=== PATIENT | female | born 1955 | race Caucasian/White ===

== ENCOUNTER 2017-07-27 07:27 | Inpatient (IN) | payer MEDICARE ==
[~2017-07-27] VITALS: Ht 154.9 cm; Wt 92.1 kg
[~2017-07-27 07:27] MED LIST: CLONAZEPAM0.5 MG PO; DESYREL300 MG PO; IBUPROFEN200 MG PO; MYRBETRIQ50 MG PO; PRILOSEC10 M1; PROAIR HFA INH8.5 GM PO; SEROQUEL25 MG PO; SERTRALINE HCL100 MG PO; SPIRIVA18 MCG INH; Z.0.LEVOTHYROXINE50 PO; Z.0.LOSARTAN POTASS2 PO; Z.0.NEURONTIN300 MG PO; Z.0.OMEPRAZOLE20 M1 PO; Z.0.OXYBUTYNIN CHLOR PO; Z.0.ZOCOR80 MG PO; Z.1.FLUOXETINE HCL20 PO; [UNRECOGNIZED DRUG - OTHER] PO
[2017-07-27 08:00] LABS: BASOPHILS # (AUTO) 0.1 (0.0-0.1); EOSINOPHILS # (AUTO) 0.1 (0.0-0.4); EOSINOPHILS % 1.4 % (0.0-6.0); HEMATOCRIT 35.7 % (34.2-44.1); HEMOGLOBIN 11.9 g/dL (12.0-16.0); LYMPHOCYTES % 38.4 % (18.0-39.1); MEAN CORPUSCULAR HEMOGLOBIN 29.8 pg (28-32); MEAN CORPUSCULAR HGB CONC 33.3 g/dL (31-35); MEAN CORPUSCULAR VOLUME 89.5 fL (81-99); MONOCYTES # (AUTO) 0.3 (0.2-0.8); MONOCYTES % 5.3 % (4.4-11.3); NEUTROPHILS # (AUTO) 2.7 (2.1-6.9); NEUTROPHILS % 53.7 % (38.7-80.0); PLATELET COUNT 242 x10e3/uL (140-360); RED BLOOD COUNT 3.99 x10e6/uL (3.6-5.1)
[2017-07-27 08:09] LABS: INR 1.02; PROTHROMBIN TIME 12.6 seconds (11.9-14.5)
[2017-07-27 08:11] LABS: PARTIAL THROMBOPLASTIN TIME 29.1 seconds (23.8-35.5)
[2017-07-27 08:18] LABS: ALANINE AMINOTRANSFERASE 11 IU/L (0-55); ALBUMIN 3.8 g/dL (3.5-5.0); ALBUMIN/GLOBULIN RATIO 1.1 (0.8-2.0); ALKALINE PHOSPHATASE 79 IU/L (40-150); ANION GAP 11.5 mmol/L (8-16); BLOOD UREA NITROGEN 10 mg/dL (7-26); BUN/CREATININE RATIO 12 (6-25); CALCIUM 9.6 mg/dL (8.4-10.2); CARBON DIOXIDE 29 mmol/L (22-29); CHLORIDE 108 mmol/L (98-107); CREATININE, SERUM 0.82 mg/dL (0.57-1.11); EST GLOMERULAR FILTRATION RATE > 60 ML/MIN (60-); GLUCOSE 104 mg/dL (74-118); POTASSIUM 3.5 mmol/L (3.5-5.1); SODIUM 145 mmol/L (136-145)
[2017-07-27 08:37] LABS: THYROID STIMULATING HORMONE 5.205 uIU/mL (0.350-4.940)
--- NOTE | 2017-07-27 09:11 | Diagnostic Imaging Report ---
Examination: CT head without contrast Clinical Indication: Evaluate for stroke. Technique: Transaxial noncontrast images from the skull base through the vertex were obtained. Sagittal and coronal reformatted images were done. Comparison: Head CT performed November 06, 2016.. Findings: Motion artifact. Scalp: No abnormalities. Bones: Intact. No fractures. No blastic or lytic lesions. Brain sulci: Normal for patient's age. Ventricles: Normal in size and configuration. No hydrocephalus. . Extra-axial space: No abnormalities. Parenchyma: There are mild confluent areas of low-attenuation within subcortical and periventricular white matter, nonspecific, but could represent microvascular ischemic disease. Again demonstrated are chronic with coronary infarcts in the right caudate head and genu of the right internal capsule/ inferior right globus pallidus. No large masses, large hemorrhage, or large acute or chronic cortical based vascular insults. Suprasellar region: No abnormalities. Craniocervical junction: The foramen magnum is patent. No Chiari one malformation. Incidental findings: Chronic left sphenoid sinusitis. Atherosclerotic calcification of the cavernous and supraclinoid internal carotid and V4 segments of the bilateral vertebral arteries. Impression: 1. Despite limitation, no new large acute intraparenchymal or extra-axial hemorrhage or large acute arterial infarct. No change from prior head CT performed November 06, 2016. 2. Unchanged moderate chronic microvascular ischemic change. 3. Unchanged chronic lacunar infarcts, as above. Signed by: Dr. Vidya Xavier M.D. on 07/27/2017 9:20 AM
[2017-07-27 10:34] LABS: BILIRUBIN,URINE NEGATIVE (NEGATIVE); KETONES,URINE NEGATIVE (NEGATIVE); LEUKOCYTE ESTERASE ,URINE NEGATIVE (NEGATIVE); NITRITE,URINE NEGATIVE (NEGATIVE); PROTEIN,URINE DIPSTICK NEGATIVE (NEGATIVE); URINE UROBILINOGEN 0.2 mg/dL (0.2 - 1)
[2017-07-27 10:39] LABS: AMPHETAMINES SCREEN,URINE NEGATIVE (NEGATIVE); BENZODIAZEPINES SCREEN,URINE NEGATIVE (NEGATIVE); PHENCYCLIDINE SCREEN,URINE NEGATIVE (NEGATIVE)
[2017-07-27 10:46] LABS: CHOL/HDL RATIO 5.8 (3.0-3.6); MAGNESIUM 1.9 MG/DL (1.3-2.1); PHOSPHORUS 4.1 MG/DL (2.3-4.7)
[2017-07-27 10:52] LABS: CLARITY,URINE CLEAR (CLEAR); COLOR,URINE YELLOW (YELLOW)
[2017-07-27 10:53] LABS: EPITHELIAL CELLS,URINE RARE /LPF
[2017-07-27] MEDS ORDERED: SODIUM CHLORIDE FLUSH 10 ML SYR INJ PRN (12:15)
[2017-07-27] MEDS ORDERED: ONDANSETRON HCL INJ 2 MG/ML VIAL IV PRN (12:15)
--- OUTSIDE RECORDS SUMMARY | 2017-07-27 12:30 | XMS REPORT ---
Author Author [facility] Address Unknown Phone Unavailable Care Team Providers Care Pst Specialist Name Role Phone GABRIELA SAUCEDO Unavailable Unavailable Problems This patient has no known problems. Allergies, Adverse Reactions, Alerts This patient has no known allergies or adverse reactions. Medications This patient has no known medications. Results Test Description Test Time Test Comments Text Results Atomic Results Result Comments CT BRAIN WO [place] [address] Patient Name: AGATHA GODFREY MR #: [id number] : 1958 Age/Sex: 59/F Req #: [id number] Adm Physician: Ordered by: GABRIELA SAUCEDO MD Report #: [id number] Location: ER Room/Bed: Procedure: [id number] CT/CT BRAIN WO Exam Date: 07/27/17 Exam Time: 0803 REPORT STATUS: Signed Examination: CT head without contrast Clinical Indication: Evaluate for stroke. Technique: Transaxial noncontrast images from the skull base through the vertex were obtained. Sagittal and coronal reformatted images were done. Comparison: Head CT performed November 06, 2016.. Findings: Motion artifact. Scalp: No abnormalities. Bones: Intact. No fractures. No blastic or lytic lesions. Brain sulci: Normal for patient's age. Ventricles: Normal in size and configuration. No hydrocephalus. . Extra-axial space: No abnormalities. Parenchyma: There are mild confluent areas of low-attenuation within subcortical and periventricular white matter, nonspecific, but could represent microvascular ischemic disease. Again demonstrated are chronic with coronary infarcts in the right caudate head and genu of the right internal capsule/ inferior right globus pallidus. No large masses, large hemorrhage, or large acute or chronic cortical based vascular insults. Suprasellar region: No abnormalities. Craniocervical junction: The foramen magnum is patent. No Chiari one malformation. Incidental findings: Chronic left sphenoid sinusitis. Atherosclerotic calcification of the cavernous and supraclinoid internal carotid and V4 segments of the bilateral vertebral arteries. Impression: 1. Despite limitation, no new large acute intraparenchymal or extra-axial hemorrhage or large acute arterial infarct. No change from prior head CT performed November 06, 2016. 2. Unchanged moderate chronic microvascular ischemic change. 3. Unchanged chronic lacunar infarcts, as above. Signed by: Dr. Vidya Xavier M.D. on 07/27/2017 9:20 AM Dictated By: VIDYA SO MD 9 Transcribed By: CHANDNI on 07/27/17919 COPY TO: GABRIELA SAUCEDO MD
[2017-07-27 12:50] LABS: ABG HCO3 30 mmol/L (23-28); ABG PCO2 52 mmHg (41-51); ABG PH 7.36 (7.31-7.41); ABG PO2 93 mmHg (80-105)
--- NOTE | 2017-07-27 14:27 | Diagnostic Imaging Report ---
EXAMINATION: MRI of the brain without contrast. HISTORY: Altered mental status, evaluate for acute stroke COMPARISON: Head CT on 11/06/2016 brain MRI in 10/16/2011 TECHNIQUE: Sagittal T2; axial DWI, T2, FLAIR, T1-IR, T2 gradient echo; coronal FLAIR. IMAGE QUALITY: Motion artifact limits evaluation of most of the sequences.. FINDINGS: Parenchyma: 1. Mildly confluent periventricular, york radiata and centrum semiovale white matter T2 hyperintense foci, most likely nonspecific chronic microvascular ischemic changes. 2. Again seen small chronic lacunar infarcts in the right head and body of the caudate nucleus. 3. No mass, hemorrhage, acute or chronic infarcts. Skull: Unremarkable. Vessels: Expected flow voids present in the major arteries and dural sinuses. Extra-axial spaces: No abnormal signal intensity or mass effect. Brain volume: Mild generalized brain windows, both particular prominence of the perisylvian regions) . Ventricles: No hydrocephalus or displacement. Foramen magnum: Unremarkable. Sella: Unremarkable. Paranasal / mastoid sinuses: Mild mucosal inflammatory thickening and partial opacification of the left greater than right sphenoid sinuses, otherwise clear IMPRESSION: Suboptimal study due to motion. 1. No acute infarcts. 2. Unchanged moderate chronic microvascular ischemic changes. 3. Also unchanged small chronic lacunar infarct in the right basal ganglia. 4. Mild generalized brain volume loss. Signed by: Dr. Angelica Murguia M.D. on 07/27/2017 2:24 PM
[2017-07-27] MEDS ORDERED: LEVOTHYROXINE SODIUM 50 MCG TAB PO ONE (16:15)
[2017-07-27] MEDS ORDERED: LABETALOL HCL 5 MG/ML 20ML VIAL IV PRN (17:15)
[2017-07-27] MEDS: QUETIAPINE FUMARATE 25 MG TAB PO SCH (17:36)
[2017-07-27 17:37] VITALS: BP 174/77
[2017-07-27 20:00] VITALS: BP 169/101
[2017-07-27] MEDS ORDERED: ATORVASTATIN 20 MG TAB PO SCH (21:00)
[2017-07-27] MEDS: ATORVASTATIN 40 MG TAB PO SCH (21:46)
[2017-07-28] VITALS (8 sets, daily range): BP systolic 143–178; BP diastolic 70–101
--- NOTE | 2017-07-28 01:12 | Consultation ---
DATE OF CONSULTATION: July 27, 2017 NEUROLOGY CONSULT NOTE DATE OF : 1955 HISTORY OF PRESENT ILLNESS: Ms. Lazar is a 62-year-old, [id number]-fpponlzf woman with past medical history significant for hypertension, hyperlipidemia, 2 prior strokes with unknown residual deficits and tobacco use, who presented to the emergency center at [facility] on July 27, 2017, with transient neurological symptoms. The patient woke at approximately 5 a.m. on the morning of admission. When she awoke, she patient was confused and disoriented. Her gait and balance were impaired. The patient endorses dizziness as well, which is further described as lightheadedness. Ms. Lazar does not recall if she had a visual field cut, dysarthria, aphasia, facial droop, hemiparesis or hemihypesthesia associated with above symptoms. Her son, who was at the bedside, endorses possible word finding difficulties. The patient's family members were concerned she had experienced another stroke, and notified paramedics, who transported the patient to the emergency center at [facility] for further evaluation and treatment. By the time she reached the emergency center, the patient's symptoms had significantly improved. Ms. Lazar reports resolution of her symptoms after approximately 1 hour. While in the emergency center, the patient's neurological examination was nonfocal. She underwent a CT of the brain without contrast, which did not demonstrate recent large territorial ischemia, hemorrhage, mass or mass effect. The patient was admitted to [facility] for further evaluation and treatment. The patient does not report experiencing similar symptoms previously. Two days prior to admission, the patient did experience tingling of both arms and a "weird feeling". Ms. Lazar thought she may have been experiencing a heart attack. However, when she did not experience chest pain or irregular heartbeat, the decision was made not to seek further medical evaluation. REVIEW OF SYSTEMS: Abdominal pain, confusion, dizziness, impaired balance and gait, headaches, tingling of the arms. Otherwise, the 12-point review of systems is negative. PAST MEDICAL HISTORY: Hypertension, hyperlipidemia, thyroid disease, bipolar disorder, 2 prior strokes with unknown residual deficits, neurogenic bladder. PAST SURGICAL HISTORY: Placement of a bladder stimulator, breast reduction, total hysterectomy. PAST HOSPITALIZATIONS: Surgeries and procedures as listed above, 2 strokes, and childbirth once. FAMILY HISTORY: The patient's paternal and maternal grandparents are . Their health histories are unknown. The patient's father at the age of 61 from a myocardial infarction. The patient's mother at the age of 84. She had coronary artery disease and diabetes mellitus. Ms. Lazar's siblings are all alive. One sister has high blood pressure and thyroid disease. A 2nd sister is healthy. A half brother has coronary artery disease, status post myocardial infarction, and diabetes mellitus. The patient has 1 son who is healthy. SOCIAL HISTORY: The patient is . She graduated high school. She is on disability for bipolar disorder and chronic low back pain. Ms. Lazar has smoked 1.5 to 1 pack of cigarettes per day for over 30 years. She continues to smoke. The patient reports occasional alcohol consumption. She does not report current or prior recreational drug use. HOME MEDICATIONS 1. ProAir inhaler 2 puffs inhaled every 6 hours. 2. Clonazepam 0.5 mg by mouth as needed daily. 3. Ibuprofen 600 mg by mouth as needed for pain. 4. Levothyroxine 50 mcg by mouth daily. 5. Losartan 25 mg by mouth daily. 6. Myrbetriq 50 mg by mouth daily. 7. Omeprazole 10 mg by mouth daily. 8. Seroquel 25 mg by mouth twice daily. 9. Sertraline 100 mg by mouth daily. 10. Trazodone 300 mg by mouth at bedtime daily. ALLERGIES: HALDOL, VITO INHIBITORS. NO KNOWN FOOD ALLERGIES. NO KNOWN ALLERGY TO LATEX. NO KNOWN ALLERGY TO CONTRAST MATERIALS. PHYSICAL EXAMINATION VITAL SIGNS: Height 62 inches, weight 230 lbs, BMI 42.1 kg per meter squared, blood pressure 150/75 mmHg, pulse 89 beats per minute, respiratory rate 20 breaths per minute, oxygen saturation 99% on 3 L by nasal cannula. GENERAL: The patient is awake and alert. Does not appear distressed. Obese. HEENT: Normocephalic, atraumatic. Pupils are equal, round, and reactive to light. Moist mucous membranes. NECK: Supple. No appreciable thyromegaly. No appreciable carotid bruits. CARDIOVASCULAR: S1, S2. Regular rate and rhythm. No murmurs, rubs or gallops. RESPIRATORY: Clear to auscultation bilaterally. No wheezes, rhonchi or rales. EXTREMITIES: The skin is warm and dry. No clubbing, cyanosis or edema. The posterior tibial and dorsalis pedis pulses are 2+ and symmetric. SKIN: No rashes or lesions. NEUROLOGIC: Memory/attention: The patient is awake and alert, oriented to person, place, and situation. Not oriented to time. CRANIAL NERVES: Cranial nerve I--not tested. Cranial nerves II, III, IV, --pupils are equal and round, react briskly to light (from 4 mm to 2 mm). Extraocular movements intact. No nystagmus. Cranial nerve V--sensation to light touch and pinprick is decreased over the left V1 through V3 distributions. Strength of the temporalis and masseter muscles is within normal limits. Cranial nerve VII--the face is symmetric, as are all facial movements. Strength is within normal limits. Cranial nerve VIII--hearing is intact to finger rub bilaterally. Cranial nerve IX and X--the soft palate elevates equally and symmetrically. Cranial nerve XI--normal strength of the bilateral sternocleidomastoid and trapezius muscles. Cranial nerve XII--the tongue protrudes midline and moves symmetrically from side to side. STRENGTH: The patient maintains both arms antigravity for 10 seconds each. The patient's maintains both legs antigravity for 5 seconds each. Strength is grossly 5/5. Tone is normal. DTRs: Deep tendon reflexes are 1+ and symmetric at the triceps, biceps, brachioradialis, patellas, and Achilles. Plantar responses are flexor bilaterally. Absent clonus. SENSATION: Sensation is decreased to light touch and pinprick over the left arm and leg. CEREBELLAR: Jhxzel-dimj-bafqtn and heel-lawrence movements are intact without dysmetria or other impairment. Rapid alternating movements are intact. GAIT: Deferred. SPEECH: Spontaneous speech is mildly dysarthric without aphasia. Repetition is intact. INVOLUNTARY MOVEMENTS: None. PRONATOR DRIFT: None. LABORATORY DATA: Sodium 145, potassium 3.5, chloride 108, carbon dioxide 29, anion gap 11.5, BUN 10, creatinine 0.82, estimated GFR greater than 60, JAE-lh-wpezativfe ratio 12, glucose 104, calcium 9.6, total bilirubin 0.3, AST 13, ALT 11, alkaline phosphatase 79, total protein 7.4, albumin 3.8, globulin 3.6, uqgdage-ir-umqldjcs ratio 1.1. Troponin-I less than 0.001. TSH 5.205. Hemoglobin A1c 5.3. Phosphorus 4.1, magnesium 1.9. Total cholesterol 299, triglycerides 163, LDL 214, HDL 52. Ammonia 57. The CBC with differential and platelets reveals a white blood cell count of 5.10 with a normal differential. The hemoglobin and hematocrit are 11.9 and 35.7 respectively. The platelet count is 242,000. PT 12.6, INR 0.02, PTT 29.1. Urinalysis is unremarkable. Urine drug screen is negative. DIAGNOSTIC STUDIES: CT of the brain without contrast, July 27, 2017: On my review, there is no evidence of recent large territorial ischemia, hemorrhage, mass or mass effect. Remote ischemic infarcts are seen in the right caudate head, genu of the right internal capsule/inferior right globus pallidus. There are changes compatible with moderate chronic small-vessel ischemic disease. MRI of the brain without contrast, July 27, 2017: On my review, there is no recent large territorial ischemia, hemorrhage, mass or mass effect. Remote lacunar infarcts in the right basal ganglia are seen once again. Moderate chronic small-vessel ischemic changes are seen. There is mild diffuse volume loss. ASSESSMENT AND PLAN: Ms. Lazar is a 62-year-old, zmrio-cgsx-xupjzdwr woman with multiple vascular risk factors as detailed in history of present illness, who presents with a transient ischemic attack of the posterior circulation. The patient's neurological examination is significant for decreased sensation to light touch and pinprick over the left side of the face and left hemibody. This is probably a residual deficit from a prior stroke. Otherwise, the neurological examination is nonfocal. The patient's laboratory data and diagnostic studies have been reviewed and are documented above. Due to the occurrence of a transient ischemic attack, a complete stroke evaluation is warranted. RECOMMENDATIONS 1. Echocardiogram to evaluate the functional and structural integrity of the heart. 2. Bilateral carotid ultrasound with Dopplers to evaluate for large-vessel atherosclerosis. 3. Aspirin 81 mg by mouth daily for stroke prophylaxis. 4. Allow permissive hypertension pending the results of the bilateral carotid ultrasound with Dopplers. The patient's goal blood pressure should be 170s-180s systolic and 90s-100s diastolic. 5. The patient's goal total cholesterol is less than 200 with an LDL of less than 70. Ms. Lazar will be prescribed atorvastatin 80 mg by mouth at bedtime daily for treatment of hyperlipidemia. The patient's hemoglobin A1c was 5.3. Her goal hemoglobin A1c is less than 7.0. No further evaluation or treatment is indicated at this time. 6. GI prophylaxis with Pepcid 20 mg by mouth daily. DVT prophylaxis with Lovenox 30 mg subcutaneously daily. 7. Consultations for speech and physical therapy evaluations have been ordered. 8. Smoking cessation counseling was provided to the patient. 9. Defer treatment of the remaining medical comorbidities to the primary and other services. Thank you for this consultation. I will continue to follow this patient while she remains in the hospital. TIME SPENT: 70 minutes. Job#: [id number] CQ MTDIzabela
[2017-07-28] MEDS ORDERED: CLONAZEPAM 0.5 MG TAB PO PRN (07:30)
[2017-07-28] MEDS: FAMOTIDINE 20 MG TAB PO SCH ×2 (07:30→16:30)
[2017-07-28] MEDS: LEVOTHYROXINE SODIUM 50 MCG TAB PO SCH (07:45)
[2017-07-28 08:03] LABS: CHOL/HDL RATIO 6.3 (3.0-3.6)
--- NOTE | 2017-07-28 08:13 | History and Physical ---
PRIMARY CARE PHYSICIAN: The patient does not recall. CHIEF COMPLAINT: Confusion. HISTORY OF PRESENT ILLNESS: This is a 62-year-old woman with a history of stroke in 2013, who continues to smoke half a pack of cigarettes per day, now developing confusion with the way she was acting "goofy". The patient states she did not have any focal weakness. She developed some mild speech changes. She was confused and now she is back to normal. She continues to smoke half a pack of cigarettes per day. I have counseled her on cigarette cessation. Imaging was performed. CT scan and MRI were both negative for acute stroke. PAST MEDICAL HISTORY: Stroke in 2014, obesity, hypothyroidism, bipolar disorder, hyperlipidemia, cigarette abuse, GERD. PAST SURGICAL HISTORY: Bladder device, hysterectomy, cholecystectomy, breast reduction, foot surgery. ALLERGIES: PER ELECTRONIC MEDICAL RECORD. FAMILY HISTORY/SOCIAL HISTORY: Patient is single. She has 1 child. She smokes half a pack of cigarettes per day. No alcohol or illicits. MEDICATIONS: Per electronic medical record. REVIEW OF SYSTEMS: Denies any dizziness or chest pain. PHYSICAL EXAMINATION VITAL SIGNS: Have been reviewed. GENERAL: A tired-appearing woman resting in bed. HEENT: Anicteric. Pupils respond to light. No oral lesions. CARDIOVASCULAR: Normal S1 and S2. LUNGS: Moderate breath sounds. ABDOMEN: Soft, nontender and nondistended. EXTREMITIES: No edema. SKIN: Dry. PSYCHIATRIC: Flat affect. NEUROLOGICAL: Alert and oriented times 3. Moving all extremities. No focal weakness. LABS: Reviewed. MEDICATIONS: Reviewed. ASSESSMENT AND PLAN: This is a 62-year-old woman with: 1. Transient ischemic attack: She does have a history of stroke. She continues to smoke half pack of cigarettes per day. I have counseled her on cigarette cessation. Will treat with statin and aspirin. Will add Plavix. Will also continue blood pressure control. 2. Abnormal electrocardiogram: Recheck electrocardiogram now. 3. Hypertension: Resume home antihypertensive medications. 4. Hyperlipidemia: Will continue with statin and follow up lipid panel. 5. Anxiety/depression: Continue sertraline and clonazepam. 6. Hypothyroidism: Continue Synthroid. 7. Prophylaxis: Use Lovenox and Pepcid. 8. Disposition: Will follow up echocardiogram and carotid ultrasound. Continue physical therapy. Job#: [id number] [place]
[2017-07-28] MEDS: LOSARTAN POTASSIUM 25 MG TAB PO SCH (08:52)
[2017-07-28] MEDS: ASPIRIN 325 MG TAB PO SCH (08:52)
[2017-07-28] MEDS: QUETIAPINE FUMARATE 25 MG TAB PO SCH ×2 (08:52→20:58)
[2017-07-28] MEDS ORDERED: FAMOTIDINE 20 MG TAB PO SCH (09:00)
[2017-07-28] MEDS ORDERED: SERTRALINE HCL 100 MG TAB PO SCH (09:00)
[2017-07-28] MEDS ORDERED: CLOPIDOGREL BISULFATE 75 MG TAB PO SCH (09:00)
[2017-07-28] MEDS ORDERED: ASPIRIN 325 MG TAB EC PO SCH ×2 (09:00)
[2017-07-28] MEDS ORDERED: ENOXAPARIN 30 MG/0.3 ML SYR SC SCH (09:00)
[2017-07-28] MEDS ORDERED: ASPIRIN 81 MG ENTERIC COATED PO SCH (09:00)
[2017-07-28] MEDS: ACETAMINOPHEN 325 MG TAB PO PRN (10:00)
[2017-07-28] MEDS ORDERED: ACETAMINOPHEN 325 MG TAB PO PRN (11:45)
[2017-07-28] MEDS: ENOXAPARIN SOD INJ 40 MG/0.4 ML SYR SC SCH (16:46)
[2017-07-28] MEDS: SERTRALINE HCL 100 MG TAB PO SCH (20:58)
[2017-07-28] MEDS: ATORVASTATIN 40 MG TAB PO SCH (20:58)
[2017-07-29 00:55] VITALS: BP 177/78
[2017-07-29] MEDS: LEVOTHYROXINE SODIUM 50 MCG TAB PO SCH (05:37)
[2017-07-29] MEDS: FAMOTIDINE 20 MG TAB PO SCH ×2 (06:32→16:30)
[2017-07-29 07:10] VITALS: BP 177/78
[2017-07-29 07:56] VITALS: BP 155/81
--- NOTE | 2017-07-29 08:33 | Progress Note ---
DATE: July 29, 2017 TIME: 7:40 a.m. OVERNIGHT: Less confused. REVIEW OF SYSTEMS: Unreliable. PHYSICAL EXAMINATION VITAL SIGNS: Reviewed. GENERAL: A tired-appearing woman resting in bed. HEENT: Anicteric. CARDIOVASCULAR: Normal S1 and S2. LUNGS: Moderate breath sounds. ABDOMEN: Soft, nontender and nondistended. EXTREMITIES: No edema. SKIN: Dry. PSYCHIATRIC: Flat affect. NEUROLOGICAL: Alert and oriented times 3. Moving all extremities. LABS: Reviewed. MEDICATIONS: Reviewed. ASSESSMENT: A 62-year-old woman with: 1. Transient ischemic attack. 2. Abnormal electrocardiogram. 3. Hypertension. 4. Hyperlipidemia. 5. Anxiety/depression. 6. Hypothyroidism. PLAN 1. Carotid ultrasound negative. 2. Triglycerides 163 and LDL 214. Hemoglobin A1c 5.3. 3. Will treat hyperlipidemia with Lipitor 80 mg, which is currently on board. 4. Continue Lovenox. 5. Continue physical therapy. 6. Follow up 2-D echocardiogram. Job#: [id number] YOUSIF
[2017-07-29] MEDS: LOSARTAN POTASSIUM 25 MG TAB PO SCH (09:00)
[2017-07-29] MEDS: ASPIRIN 325 MG TAB PO SCH (09:00)
[2017-07-29] MEDS: QUETIAPINE FUMARATE 25 MG TAB PO SCH ×2 (09:00→20:06)
[2017-07-29] MEDS ORDERED: LOSARTAN POTASSIUM 25 MG TAB PO ONE (10:00)
[2017-07-29] MEDS: ACETAMINOPHEN 325 MG TAB PO PRN ×2 (11:17→22:19)
[2017-07-29 11:40] VITALS: BP 143/77
[2017-07-29 16:03] VITALS: BP 121/73
[2017-07-29] MEDS: ENOXAPARIN SOD INJ 40 MG/0.4 ML SYR SC SCH (17:00)
[2017-07-29] MEDS: SERTRALINE HCL 100 MG TAB PO SCH (20:06)
[2017-07-29] MEDS: ATORVASTATIN 40 MG TAB PO SCH (20:06)
[2017-07-29] MEDS ORDERED: TRAZODONE HCL 50 MG TAB PO SCH (21:00)
[2017-07-29 21:02] VITALS: BP 148/84
[2017-07-30 00:53] VITALS: BP 111/56
[2017-07-30 05:42] VITALS: BP 148/75
[2017-07-30] MEDS: LEVOTHYROXINE SODIUM 50 MCG TAB PO SCH (06:30)
[2017-07-30] MEDS: FAMOTIDINE 20 MG TAB PO SCH (07:30)
[2017-07-30] MEDS ORDERED: ASPIRIN325 MG PO (07:40)
[2017-07-30] MEDS ORDERED: COZAAR100 MG PO (07:40)
[2017-07-30] MEDS ORDERED: Atorvastatin PO (07:40)
[2017-07-30 07:45] VITALS: BP 148/75
[2017-07-30 07:55] VITALS: BP 142/75
[2017-07-30] MEDS ORDERED: LOSARTAN POTASSIUM 100 MG TAB PO SCH (09:00)
[2017-07-30] MEDS: QUETIAPINE FUMARATE 25 MG TAB PO SCH (09:00)
[2017-07-30] MEDS: ASPIRIN 325 MG TAB PO SCH (09:00)
[2017-07-30 11:54] VITALS: BP 108/63
== END 2017-07-30 11:30 | disposition home or self-care (01) | DRG 69 ==
LOC: ER 07:27 → EDBD 12:28 → ERHOLD 12:28 → MED/SURG2 15:20
PROVIDERS: ADMIT Internal Medicine; ATTEND Internal Medicine
DX: G45.9 Transient cerebral ischemic attack, unspecified (principal); I10 Essential (primary) hypertension; Z86.73 Personal history of transient ischemic attack (TIA), and cerebral infarction without residual deficits; F31.9 Bipolar disorder, unspecified; E03.9 Hypothyroidism, unspecified; F17.210 Nicotine dependence, cigarettes, uncomplicated; R94.31 Abnormal electrocardiogram [ECG] [EKG]; F41.9 Anxiety disorder, unspecified; F32.9 Major depressive disorder, single episode, unspecified; E66.9 Obesity, unspecified; Z68.38 Body mass index [BMI] 38.0-38.9, adult; Z79.01 Long term (current) use of anticoagulants
CPT/HCPCS: 36415; 36600; 70450; 70551; 80053; 80061; 80307; 80320; 81001; 82140; 82805; 82948; 83036; 83735; 84100; 84443; 84484; 85025; 85610; 85730; 92523; 93005; 93306; 93880; 99285; J1650

== ENCOUNTER → 2019-06-24 | Outpatient (CLI) | payer MEDICARE ==
[~2019-06-24] MED LIST changes: +ASPIRIN325 MG PO; +Atorvastatin PO; +COZAAR100 MG PO
--- NOTE | 2019-06-24 15:07 | Diagnostic Imaging Report ---
CT of the abdomen and pelvis History: R31.21, N32.81 Comparison: None available. Technique: Multidetector CT scanning of the abdomen and pelvis was performed from the level of the lung bases to the inferior pubic ramus, without contrast. DOSE REDUCTION: The examination was performed according to departmental dose-optimization program which includes automated exposure control, adjustment of the mA and/or kV according to patient size and/or use of iterative reconstruction technique. Discussion: The lung bases are clear. No focal hepatic lesions are identified. The gallbladder is contracted. There is no intrahepatic or extrahepatic dilatation. The spleen is within normal limits of size. The bilateral adrenal glands are unremarkable. The pancreas is homogeneous in attenuation. There is no pancreatic ductal dilatation. The kidneys are normal in size measuring 10.9 cm in length on the right and 10.4 cm in length on the left. No kidney stones are identified. There is no hydroureteronephrosis bilaterally. The stomach, small, and large bowel are nondistended. There is no evidence of obstruction. No bowel wall thickening is appreciated. There is no free intraperitoneal air or ascites. The abdominal aorta is of normal course and caliber. There are extensive atherosclerotic calcifications of the abdominal aorta and at the origins of the renal arteries bilaterally. No enlarged abdominal or retroperitoneal lymph nodes are identified. The uterus is surgically absent. The urinary bladder is within normal limits. No acute osseous abnormalities are identified. Multilevel degenerative changes of the thoracolumbar spine are present. There is a left sacral stimulator device in place. IMPRESSION: No evidence of nephroureterolithiasis. Status post hysterectomy. Signed by: Jordan Manzano MD on 06/24/2019 3:04 PM
--- NOTE | 2019-06-24 15:09 | Diagnostic Imaging Report ---
AP view the pelvis and AP and lateral views of the sacrum metastasis. Clinical indication: Overactive bladder, asymptomatic microendoscopic hematuria Comparison: Abdominal radiograph dated 05/19/2019 Findings/impression: There is no radiographic evidence of acute fracture or dislocation. Degenerative changes of the hips and lumbar spine are present. A left-sided neurostimulator device is in place with the lead terminating over the left sacrum. There is an abandoned right sacral lesion. Signed by: Jordan Manzano MD on 06/24/2019 3:07 PM
== END ==
LOC: CT 12:26
PROVIDERS: ATTEND Urology
DX: R31.21 Asymptomatic microscopic hematuria (principal); N32.81 Overactive bladder
CPT/HCPCS: 72170; 72220; 74176

== ENCOUNTER → 2020-08-24 | Outpatient (CLI) | payer OTHER | LOC: US 10:40 | PROVIDERS: ATTEND Urology | DX: N39.0 Urinary tract infection, site not specified (principal) | CPT/HCPCS: 74018; 76770; 76857 ==